=== PATIENT | male | born 1995 | race African-American/Black ===

== ENCOUNTER 2018-03-30 20:13 | Emergency (ER) | payer OTHER ==
[~2018-03-30] VITALS: Ht 200.7 cm; Wt 93.3 kg
[2018-03-30] MEDS ORDERED: KEFLEX500 MG PO (22:16)
[2018-03-30] MEDS ORDERED: MOTRIN800 MG PO (22:16)
[2018-03-30 22:45] VITALS: BP 149/82
== END 2018-03-30 22:52 ==
LOC: EME 20:13
PROC: 3E0234Z Introduction of Serum, Toxoid and Vaccine into Muscle, Percutaneous Approach (ICD-10-PCS; principal; 2018-03-30)
DX: S81.801A Unspecified open wound, right lower leg, initial encounter (principal); S91.301A Unspecified open wound, right foot, initial encounter; W34.09XA Accidental discharge from other specified firearms, initial encounter; Z23 Encounter for immunization
CPT/HCPCS: 73590; 73610; 73630; 99281; 99284; J0690; J1885